=== PATIENT | male | born 1970 | race Caucasian/White ===

== ENCOUNTER 2022-09-10 03:19 | Inpatient (IN) | payer OTHER ==
[2022-09-10] VITALS (25 sets, daily range): BP systolic 95–135; BP diastolic 62–91
[~2022-09-10] VITALS: Ht 177.8 cm; Wt 93.0 kg
--- NOTE | 2022-09-10 03:19 | NUR ---
PT BIBA ALS ER BED 10
[2022-09-10] MEDS ORDERED: PROPOFOL 1000 MG/100 ML PREMIX 100 ML IV ONE ×3 (03:28→08:30)
[2022-09-10] MEDS ORDERED: PROPOFOL 200 MG/20 ML VIAL IV ONE (03:30)
[2022-09-10] MEDS ORDERED: NACL 0.9% 1,000 ML IV ONE (03:30)
--- NOTE | 2022-09-10 03:34 | NUR ---
PT ARRIVED IN FULL ARREST, WITNESSED BY FAMILY, DOWNTIME APPROX 4 MIN TABLE ASSEMBLER METAL OF EMS. 4 ROUNDS OF EPI, 1 LIDOCAINE, 2MG NARCAN, DEFIBRILLATED X3 TIMES TABLE ASSEMBLER METAL. ON ARRIVAL CPR IN PROGRESS, BAGGED VIA BVM. IO NOTED TO LEFT LEG, IV INSERTED TO RIGHT AC #20GUAGE, LEFT FA #18GUAGE. 0322: PT INTUBATED 7.5TEETH 0323: ROSC, STACH PER EKG SEE CODE SHEET
[2022-09-10 03:44] LABS: BASOPHILS # (AUTO) 0.1 K/uL (0.00-0.22); BASOPHILS % (AUTO) 1.3 % (0.0-2.0); EOSINOPHILS # (AUTO) 0.2 K/uL (0-0.4); EOSINOPHILS % (AUTO) 1.7 % (0.0-4.0); HEMATOCRIT 44.6 % (36-52); HEMOGLOBIN 14.6 g/dL (12.0-18.0); LYMPHOCYTES # (AUTO) 7.9 K/uL (2.0-11.5); LYMPHOCYTES % (AUTO) 72.7 % (20.5-51.1); MEAN CORPUSCULAR HEMOGLOBIN 34 pg (27-31); MEAN CORPUSCULAR HGB CONC 33 g/dL (33-37); MEAN CORPUSCULAR VOLUME 104.3 fL (80-94); MONOCYTES # (AUTO) 0.5 K/uL (0.8-1.0); MONOCYTES % (AUTO) 4.2 % (1.7-9.3); NEUTROPHILS # (AUTO) 2.2 K/uL (1.8-7.7); NEUTROPHILS % (AUTO) 20.1 % (42.2-75.2); PLATELET COUNT (AUTO) 82 K/uL (140-450); RED BLOOD CELL COUNT(AUTO) 4.27 MIL/uL (4.20-6.10); RED CELL DISTRIBUTION WIDTH 13.8 % (11.6-13.7); WHITE BLOOD COUNT (AUTO) 10.9 K/uL (4.8-10.8)
[2022-09-10] MEDS ORDERED: VANCOMYCIN 1,000 MG in DEXTROSE 5% 250 ML IV ONE (03:50)
--- NOTE | 2022-09-10 03:54 | NUR ---
F/C INSERTED USING STERILE TECHNIQUE, F/C DRAINING TO GRAVITY.
[2022-09-10 04:05] LABS: APPEARANCE,URINE CLEAR (CLEAR); BILIRUBIN,URINE NEGATIVE (NEGATIVE); BLOOD, URINE 1+ (NEGATIVE); COLOR,URINE YELLOW (YELLOW); LEUKOCYTE ESTERASE ,URINE TRACE (NEGATIVE); NITRITE, URINE NEGATIVE (NEGATIVE); PH,URINE 6.5 (5.0-9.0); UGLUCOSE NEGATIVE (NEGATIVE)
[2022-09-10] MEDS ORDERED: cefTRIAXone 1,000 MG VIAL ONE (04:05)
[2022-09-10 04:12] LABS: ANION GAP 20.5 (8-16); CARBON DIOXIDE 22.9 mmol/L (21-32); POTASSIUM 4.4 mmol/L (3.5-5.1); TOTAL BILIRUBIN 0.3 mg/dL (0.0-1.0)
[2022-09-10 04:16] LABS: BARBITURATE, URINE NEGATIVE ng/ml (NEG <=200); BENZODIAZEPINE, URINE NEGATIVE ng/mL (NEG <=200); CANNABINOID, URINE POSITIVE ng/mL (NEG <=50); COCAINE, URINE NEGATIVE ng/mL (NEG <=300); OPIATE, URINE NEGATIVE ng/mL (NEG <=2000); PHENCYCLIDINE SCREEN,URINE NEGATIVE ng/mL (NEG <=25)
[2022-09-10] MEDS ORDERED: VANCOMYCIN 1,000 MG VIAL ONE (04:19)
[2022-09-10] MEDS ORDERED: NOREPINEPHRINE 4 MG/4 ML VIAL IV ONE (04:23)
[2022-09-10] MEDS ORDERED: NOREPINEPHRINE 4 MG in DEXTROSE 5% 250 ML IV ONE (05:05)
[2022-09-10] MEDS ORDERED: SPIR50TA PO (05:10)
[2022-09-10] MEDS ORDERED: VITB12 PO (05:10)
[2022-09-10] MEDS ORDERED: CARV25TA PO (05:10)
[2022-09-10] MEDS ORDERED: BENA40TA PO (05:10)
[2022-09-10] MEDS ORDERED: CHOL100013 PO (05:10)
[2022-09-10 06:00] LABS: RBC,URINE 0-5 /HPF (0-5)
[2022-09-10] MEDS ORDERED: MORPHINE SULFATE 4 MG/ML SYR IVP PRN (06:05)
[2022-09-10] MEDS ORDERED: ACETAMINOPHEN 325 MG TAB PO PRN (06:05)
[2022-09-10] MEDS ORDERED: KCL 20 MEQ/WATER INJ PREMIX 200 ML IV PRN (06:05)
[2022-09-10] MEDS ORDERED: ONDANSETRON 4 MG/2 ML VIAL IVP PRN (06:05)
[2022-09-10] MEDS ORDERED: MAGNESIUM OXIDE 400 MG TAB PO PRN (06:05)
[2022-09-10] MEDS ORDERED: POTASSIUM CHLORIDE 10 MEQ TABER PO PRN (06:05)
[2022-09-10] MEDS ORDERED: HYDROcodone/APAP 5/325 MG 1 TAB TAB PO PRN (06:05)
[2022-09-10] MEDS ORDERED: MAG SULF 2000 MG/WATER PREMIX 50 ML IV PRN (06:05)
--- NOTE | 2022-09-10 06:25 | NUR ---
TRANSFERRED TO ICU-2 PATIENT REMOVED FROM VENTILATOR PLACED ON SUPPLEMENTAL OXYGEN AT 15 LPM VIA E-TANK TO AMBU BAG/ENDOTRACHEAL TUBE/HME/INLINE SUCTION CATHETER BAG DEPRESSION EVERY SIX SECONDS TOLERATED TRANSFER WELL WITHOUT ADVERSE REACTIONS NOTED SATURATION 100% HT HR HIGH 70's TO LOW 80''s
--- NOTE | 2022-09-10 06:30 | NUR ---
Patient received from ER admitted to ICU room 2, unresponsive, ongoing Propofol drip for sedation moves extremities bilateral wrist restraints in place for safety,HR ?80'S SR on the monitor Levophed drip at 6mcg/min vitals signs stable, ETT to ventilator A/C V/C mode rate 18 FIO2 60% TV 550 PEEP 5, aaron to gravity. Complete bed bath given with CHG wipes skin checked four eyes assessment no skin breakdown noted, IV site left subclavian triple lumen flushed with NS with good blood return. Pt repositioned education not done due to pt's condition.
--- NOTE | 2022-09-10 06:45 | NUR ---
Bedside report received from DAMASO WHITE at the bedside as per report pt was full arrest from home enroute ER family are in waiting room.
--- NOTE | 2022-09-10 06:53 | NUR ---
Patient will be admitted to care of [facility]. Admited to ICU. Will go to room ICU. Belongings list completed. Report to KENNEY.
--- NOTE | 2022-09-10 07:10 | NUR ---
[facility] VENTILATOR PLUGGED INTO RED OUTLET TOLERATING WELL WITHOUT ADVERSE REACTIONS NOTED TO AN ENDOTRACHEAL TUBE #7.5 SECURED AT 25cm TEETH/GUM LINE WIH AN ANCHOR FAST CUFF PRESSURE CHECKED NOTED AMBU BAG AT BEDSIDE RESTING COMFORTABLY EQUAL CHEST RISE GOOD AERATION THROUGHOUT BILATERAL LUNG HICKMAN AIRWAY PATENT
--- NOTE | 2022-09-10 07:15 | NUR ---
Bedside report given to EULOGIO WHITE at the bedside for continuity of care.
--- NOTE | 2022-09-10 07:25 | NUR ---
SBAR REPORT RECEIVED FROM TASHA WHITE, ALL CARES ASSUMED. PT INTUBATED, SEDATED WITH PROPOFOL DRIP. VENT SETTINGS: ACVC 18, 550, 60%, 5.
--- NOTE | 2022-09-10 07:45 | NUR ---
NGT inserted via left nares placement verification done by auscultation and chest xray at the bedside.
[2022-09-10] MEDS: PANTOPRAZOLE 40 MG INJ VIAL IVP SCH (08:28)
--- NOTE | 2022-09-10 10:01 | NUR ---
DR. JORDYN LEONARD AT BEDSIDE REVIEWED PATIENT LOC (SEDATED), VENTILATOR AND PULMONARY STATUS; ABG RESULTS THIS AM AT 0349 DR LEONARD INCREASED MECHANICAL RATE TO 22 BPM MICHELLE SAINZ: ROUTINE ABG LATE AFTERNOON
--- NOTE | 2022-09-10 10:06 | NUR ---
SEDATED TOLERATING VENTILATOR SUPPORT GOOD CHEST RISE AND AERATION THROUGHOUT BILATERAL LUNG HICKMAN AIRWAY PATENT SATURATION 100% ON FIO2 OF 60% PEEP 5 cmH2O TITRATED FIO2 TO 50% EULOGIO/TRANSFER OPERATOR NOTIFIED OF RATE AND FIO2 CHANGES
[2022-09-10] MEDS ORDERED: MORPHINE SULFATE 2 MG/ML SYR IVP PRN (10:30)
--- NOTE | 2022-09-10 10:33 | NUR ---
PATIENT HAS BEEN SCREENED AND CATEGORIZED HIGH NUTRITION RISK. PATIENT WILL BE SEEN WITHIN 1-2 DAYS OF ADMISSION. 09/10/22-09/12/[address]
[2022-09-10] MEDS: PROPOFOL 1000 MG/100 ML PREMIX 100 ML IV PRN ×4 (11:03→23:13)
--- NOTE | 2022-09-10 11:58 | NUR ---
09/10/22 RD INITIAL ASSESSMENT COMPLETED. PLEASE REFER TO NUTRITION ASSESSMENT UNDER CARE ACTIVITY FOR ESTIMATED NUTRITIONAL NEEDS. 1. WHEN/IF MEDICALLY APPROPRIATE TO INITIATE TUBE FEEDING, RECOMMEND NEPRO WITH A GOAL RATE OF 35ML/HR -FWF 220ML Q8H OR PER MD. -START @10 ML/HR AND INCREASE BY 10ML/HR Q4H PT TOLERATES UNTIL GOAL RATE IS REACHED. -THIS WILL PROVIDE 840 ML VOLUME, 2436 KCAL, AND 68 GRAMS OF PROTEIN, MEETING 100% OF KCAL AND 97% OF PROTEIN NEEDS;ADEQUATE. 2.MONITOR NPO STATUS 3.RD TO FOLLOW-UP 2-3 DAYS, HIGH RISK RADHA BEAUCHAMP RD
--- NOTE | 2022-09-10 13:55 | NUR ---
SEDATED STABLE RESTING WELL GOOD CHEST RISE OROPHARYNGEAL SUCTION FOR COPIOUS CLEAR TO SCATTERED WHITE SECRETIONS AIRWAY PATENT
--- NOTE | 2022-09-10 15:30 | NUR ---
DC PLANNING SW MET FAMILY AT BEDSIDE TO COMPLETE ASSESSMENT. SW GATHERED COLLATERAL INFORMATION FROM PT'S , AYAD FORD. AYAD REPORTS PATIENT RESIDES AT HOME IN A GROUND FLOOR APT, AT THE ADDRESS LISTED ON FILE. AYAD REPORTS SHE IS EMERGENCY CONTACT [phone]. PATIENT IS REPORTED TO MEET WITH PCP, DR. LOPEZ,REGULARLY, LAST VISIT; MAY 23. PATIENT ALSO MEETS WITH MEDICAL PHYSICIST REGULARLY, LAST VISIT; DEC 23. PATIENT IS REPORTED TO BE MEDICATION COMPLIANT. FAMILY DENIES BARRIERS IN ACCESS TO MEDIATIONS. PATIENT RECEIVES MEDICATION FROM [employer] [facility], WHEN NEEDED. PRIOR TO THIS HOSPITALIZATION, PATIENT WAS AMBULATORY AND COMPLETED ALL ADL'S INDEPENDENTLY. FAMILY DENIES MH/SA HX. AYAD REPORTS TENTATIVE DC PLAN IS FOR PATIENT TO RETURN HOME UNLESS OTHERWISE RECOMMENDED BY A DR FOR ALTERNATIVE PLAN OF CARE. SW INQUIRED ON RESOURCES NEEDED, FAMILY DECLINED AT THIS TIME.
--- NOTE | 2022-09-10 15:58 | NUR ---
SEDATED NO APPARENT DISTRESS NOTED EQUAL CHEST RISE GOOD AERATION THROUGHOUT BILATERAL LUNG HICKMAN AIRWAY PATENT
[2022-09-10] MEDS ORDERED: NOREPINEPHRINE 4 MG in DEXTROSE 5% 250 ML IV PRN (16:00)
--- NOTE | 2022-09-10 16:01 | NUR ---
ABG COMPLETED NO EVIDENCE OF HEMATOMA OR ADVERSE REACTIONS NOTED AT PUNCTURE SITE
--- NOTE | 2022-09-10 16:11 | NUR ---
CALLED DR. JORDYN LEONARD AT [facility] [phone] TO REVIEW ABG SAMPLE REPORT RUBY/OFFICE TO FOREMENTIONED MD PATIENT INFORMATION AND CALL BACK NUMBER GIVEN
--- NOTE | 2022-09-10 16:18 | NUR ---
CALL BACK FROM DR. JORDYN LEONARD REVIEWED ABG SAMPLE REPORT VENTILATOR SETTINGS AND PATIENT TOTAL RESPIRATORY RATE OF 22 BPM MARK LEONARD: DECREASE RATE TO 20 BPM; ABG 09/11 0800; DUONEB Q6PRN FOR SOB
--- NOTE | 2022-09-10 16:36 | NUR ---
SEDATED NO DISTRESS NOTED GOOD CHEST RISE AIRWAY PATENT PER ABG RESULTS MARK LEONARD DECREASED MECHANICAL RATE TO 20 BPM; SATURATION 100% ON FIO2 40% PEEP 5 cmH2O TITRATED FIO2 TO 35% EULOGIO/PROCESS ENGINEERING TECHNICIAN NOTIFIED ON VENTILATOR CHANGES
[2022-09-10] MEDS: NACL 0.9% 1,000 ML IV SCH (16:37)
--- NOTE | 2022-09-10 19:13 | NUR ---
SBAR REPORT GIVEN TO TASHA WHITE, ALL CARES ENDORSED.
--- NOTE | 2022-09-10 19:40 | NUR ---
Assumed pt care report received from Ely WHITE. Sedation Propofol turned for pt's baseline neuro assessment, unresponsive unable to follow command bur facial grimaces noted, moves all extremities, HR 70'S VITALS signs stable afebrile ongoing levophed dirip NGT RIGHT nares clamped pending respiratory care technician consult, aaron to gravity.clear yellow urine. ETT to ventilator fio2 30% O2 sat 97% oral care done lots of saliva drooling required frequent suction and air way clearance.
--- NOTE | 2022-09-10 20:50 | NUR ---
P'T'S at the bedside updates on pt's condition, treatments, also education on care plan ventilator tx iv fluids and restraints for safety encouraged her to verbalize her concerns
--- NOTE | 2022-09-10 21:15 | NUR ---
PT'S baseline neuro assessment at the bedside, unable to follow command, eyes not open to command moves all extremities, positive gag reflex and cough, eyes ROCIO 2/2 eyes blinked to threat pt's was also at the bedside, Levophed was also turned off as blood pressure stable will continue to monitor nad treat as per MD's order.
[2022-09-11] VITALS (27 sets, daily range): BP systolic 103–127; BP diastolic 60–88
[2022-09-11] MEDS: PROPOFOL 1000 MG/100 ML PREMIX 100 ML IV PRN ×5 (02:18→21:30)
[2022-09-11] MEDS: NACL 0.9% 1,000 ML IV SCH ×2 (05:07→18:04)
[2022-09-11 06:07] LABS: BASOPHILS % (AUTO) 0.1 % (0.0-2.0); HEMATOCRIT 39.6 % (36-52); HEMOGLOBIN 13.4 g/dL (12.0-18.0); LYMPHOCYTES # (AUTO) 0.8 K/uL (2.0-11.5); MEAN CORPUSCULAR HEMOGLOBIN 34 pg (27-31); MEAN CORPUSCULAR HGB CONC 34 g/dL (33-37); MEAN CORPUSCULAR VOLUME 99.3 fL (80-94); MONOCYTES # (AUTO) 1.1 K/uL (0.8-1.0); MONOCYTES % (AUTO) 6.9 % (1.7-9.3); NEUTROPHILS # (AUTO) 14.3 K/uL (1.8-7.7); PLATELET COUNT (AUTO) 158 K/uL (140-450); RED BLOOD CELL COUNT(AUTO) 3.99 MIL/uL (4.20-6.10); RED CELL DISTRIBUTION WIDTH 13.7 % (11.6-13.7); WHITE BLOOD COUNT (AUTO) 16.2 K/uL (4.8-10.8)
[2022-09-11 06:22] LABS: ANION GAP 17.9 (8-16); CARBON DIOXIDE 21.8 mmol/L (21-32); POTASSIUM 3.7 mmol/L (3.5-5.1)
--- NOTE | 2022-09-11 06:30 | NUR ---
Complete bed bath, oral care and pt tolerated well vitals signs stable
--- NOTE | 2022-09-11 07:10 | NUR ---
RECEIVED BEDSIDE REPORT FROM TASHA KEE RN FOR CONTINUITY OF CARE. PT SEDATED IN THE BED, RASS -3, WITHDRAWS TO STIMULATION, POSITIVE GAG AND COUGH REFLEX. ETT TO VENT, ACVC, FIO2 30% VT 550 PEEP 5 R 20. SR W PVCS AND PACS, INTERMITTENT BIGEMINY. L SUBCLAVIAN TLC CENTRAL LINE. INFUSING PROPOFOL AT 40 MCG/KG/MIN, NS AT 80 ML/HR. LEVOPHED ON STANDBY, OFF LAST NIGHT AT 2200. R NGT IN PLACE CLAMPED. LAST BM 09/09/22 AM. BOWEL SOUNDS ACTIVE. FC TO GRAVITY. GENERALIZED WEAKNESS, SKIN INTACT. STANDARD ISOLATION. BL WRIST RESTRAINTS IN PLACE, NO S/S INJURY ORDER AT 1999. CALL LIGHT WITHIN REACH. INITIAL ASSESSMENT COMPLETE, WILL CONTINUE TO CLOSELY MONITOR.
--- NOTE | 2022-09-11 07:15 | NUR ---
RECEIVED PT ON ACVC 550,20,+5, 30%. VENT PLUGGED INTO RED OUTLET, WHEELS ARE LOCKED AND AMBU BAG AT BEDSIDE. ALARMS ARE SET AND AUDIBLE. GOOD CHEST RISE, CLEAR BREATH SOUNDS, SATURATION 99% ON 30%FIO2.
--- NOTE | 2022-09-11 07:18 | NUR ---
Change of shift report at the bedside given to Roxane WHITE for continuity of care. Patient sedated on Propofol drip ETT to ventilator tolerating well all care and tx
[2022-09-11 07:27] LABS: ALBUMIN 2.8 g/dL (3.4-5.0); CREATININE 3.7 mg/dL (0.6-1.3); MAGNESIUM 1.7 mg/dL (1.8-2.4)
--- NOTE | 2022-09-11 08:49 | NUR ---
RD SPOKE WITH RN INQUIRING ABOUT TUBE FEEDING RECOMMENDATION GIVEN YESTERDAY FOR PT WHO IS STILL NPO TODAY. RN STATES SHE WILL LET MD KNOW ABOUT TUBE FEEDING RECOMMENDATION.
[2022-09-11] MEDS: PANTOPRAZOLE 40 MG INJ VIAL IVP SCH (08:55)
--- NOTE | 2022-09-11 09:00 | NUR ---
DR RICHTER ROUNDING AT BEDSIDE.
--- NOTE | 2022-09-11 09:18 | NUR ---
DC PLANNIN YRS OLD MALE PATIENT WAS ADMITTED FROM HOME WITH A DX OF CARDIAC ARREST. PATIENT HAS A HX OF CHF AND HTN. INTUBATED SEDATED FIO2 28%. CXR SHOWED MULTIFOCAL PNEUMONIA. RAPID COVID TEST NEGATIVE. CT HEAD NEGATIVE RENAL US SHOWED INCREASED ECHOGENICITY SUGGESTED MEDICAL RENAL DISEASE. ON AMIODARONE AND PROPOFOL DRIP. ADMINISTERED IVF IV ABX ROCEPHIN. CONSULTED WITH PULMO, CARDIO AND NEPHRO. DC PLAN PER PT RESPOND TO THE TREATMENT. CM TO FOLLOW Addendum: 09/14/22 at 1243 by Larissa Hinojosa RN DC PLANNING: PATIENT HAS AN ORDER TO GO TO HIGHER LEVEL OF CARE. FAXED TO [facility]. PT'S CHRO IS DR [facility] WHO HAS A PRIVILEGE AT [facility]. CM TO FOLLOW Addendum: 09/14/22 at 1250 by Larissa Hinojosa RN DC PLANNING: RECEIVED A CALL FROM THE [facility] LUIS, SHE PROVIDED AUTH FOR TRANSPORT [id number] AWAITING FOR ESTEVAN TO CALL BACK. LUIS TO FOLLOW Addendum: 09/14/22 at 1509 by Larissa Hinojosa RN DC PLANNING: RECEIVED A CALL FROM DOROTHY AT THE [facility] SHE PROVIDED THE AUTH FOR [facility] [id number]. CALLED [facility] AND PROVIDE THE AUTH TO HOUSE EILEEN WELDON AND ARRANGED TRANSPORT WITH [facility] PLACE IT WILL CALL. [facility] # [phone] TO FOLLOW
--- NOTE | 2022-09-11 09:58 | NUR ---
SEEN AND EXAMINED BY DR LEONARD AT BEDSIDE. SPOKE WITH AT BEDSIDE, EDUCATED REGARDING PT CONDITION AND PLAN OF CARE. ALL QUESTIONS ANSWERED.
--- NOTE | 2022-09-11 12:00 | NUR ---
PT RESTING, NO S/S ACUTE DISTRESS. WILL CONTINUE TO CLOSELY MONITOR.
--- NOTE | 2022-09-11 14:30 | NUR ---
SUPERVISOR ALUM PLANT AT BEDSIDE.
--- NOTE | 2022-09-11 15:05 | NUR ---
25 SECOND EPISODE OF ASYMPTOMATIC VTACH. RETURN TO SR AFTER 25 SECONDS. WILL CONTINUE TO CLOSELY MONITOR.
--- NOTE | 2022-09-11 15:52 | NUR ---
DR BALDERRAMA CONSULTING AT BEDSIDE. RECEIVED ORDERS TO START AMIODARONE DRIP. SPOKE WITH AT BEDSIDE, EDUCATED REGARDING PT CONDITION AND PLAN OF CARE. ALL QUESTIONS ANSWERED.
[2022-09-11] MEDS ORDERED: POTASSIUM CHLORIDE 10 MEQ TABER PO ONE (16:15)
[2022-09-11] MEDS ORDERED: AMIODARONE 150 MG in DEXTROSE 5% 100 ML IV ONE (16:15)
[2022-09-11] MEDS ORDERED: MAG SULF 2000 MG/WATER PREMIX 50 ML IV ONE (16:15)
[2022-09-11] MEDS ORDERED: ASPIRIN 81 MG TAB.CHEW NG ONE (16:15)
--- NOTE | 2022-09-11 17:31 | NUR ---
09/11/22 RD FOLLOW UP COMPLETED. PLEASE REFER TO NUTRITION ASSESSMENT UNDER CARE ACTIVITY FOR ESTIMATED NUTRITIONAL NEEDS. 1.CONTINUE NEPRO @35ML/HR -FWF 220ML Q8H OR PER MD. -THIS WILL PROVIDE 840 ML VOLUME, 2436 KCAL, AND 68 GRAMS OF PROTEIN, MEETING 100% OF KCAL AND 97% OF PROTEIN NEEDS;ADEQUATE. 2.MONITOR FOR GASTRIC RESIDUAL. 3.IF PT IS EXTUBATED, RECOMMEND LOW NA DIET. 4.RD TO FOLLOW-UP IN 2-3 DAYS PATIENT IS HIGH RISK. RADHA BEAUCHAMP RD
[2022-09-11] MEDS ORDERED: ASPIRIN 81 MG TAB.CHEW ONE (17:37)
[2022-09-11] MEDS: AMIODARONE 450 MG in DEXTROSE 5% 250 ML IV SCH (18:10)
--- NOTE | 2022-09-11 18:10 | NUR ---
AMIODARONE DRIP STARTED ORDERED. NGT FEEDING STARTED AT 10 ML/HR ORDERED.
--- NOTE | 2022-09-11 19:20 | NUR ---
ENDORSED BEDSIDE REPORT TO JANEEN NIGHT RN FOR CONTINUITY OF CARE. ALL QUESTIONS ANSWERED. NO S/S ACUTE DISTRESS AT THIS TIME.
--- NOTE | 2022-09-11 20:00 | NUR ---
191: REC'D PT FROM CHRISTOPHER ELI TO ASSUME PLAN FO ACRE. PT'S ORALLY INTUBATED. AC MODE; AC 20, FI02 30%, TV 550, PEEP OF 5 SATS >98%. SUCTIONED LOTS OF SECRETIONS WHITISH COLOR. HAS NGT TO THE RIGHT NARES GETTING NEPRO FEEDING AT 10CC/HR, JUST STARTED WITH GOAL OF 35CC/HR ON AMIODARONE DRIP AT 1MG STARTED 1800 FOR 6 HRS, PROPOFOL DRIP, AND NS AT 80CC/HR ALL INFUSING ONTHE LSC TLC ALL PORTS PATENT AND INTACT. TURNED AND REPOSITIONED. NO SKIN BREAKDOWN IS NOTED. 2000: CRITICAL SHIFT ASSESSMENT DONE. SAFETY AND SKIN PROTOCOL ON PROGRESS. CONTINUE MONITOR. 2030: FAMILIES COMING IN AND OUT TO VISIT THE PT.
[2022-09-12] VITALS (31 sets, daily range): BP systolic 96–144; BP diastolic 64–104
[2022-09-12] MEDS: PROPOFOL 1000 MG/100 ML PREMIX 100 ML IV PRN ×4 (02:10→15:52)
[2022-09-12] MEDS ORDERED: AMIODARONE 450 MG/9 ML VIAL IV ONE (03:05)
[2022-09-12 05:34] LABS: BASOPHILS % (AUTO) 0.1 % (0.0-2.0); EOSINOPHILS % (AUTO) 0.2 % (0.0-4.0); HEMATOCRIT 37.7 % (36-52); HEMOGLOBIN 12.7 g/dL (12.0-18.0); LYMPHOCYTES # (AUTO) 1.1 K/uL (2.0-11.5); LYMPHOCYTES % (AUTO) 7.8 % (20.5-51.1); MEAN CORPUSCULAR HEMOGLOBIN 34 pg (27-31); MEAN CORPUSCULAR HGB CONC 34 g/dL (33-37); MEAN CORPUSCULAR VOLUME 100.6 fL (80-94); MONOCYTES # (AUTO) 1.3 K/uL (0.8-1.0); MONOCYTES % (AUTO) 9.2 % (1.7-9.3); NEUTROPHILS # (AUTO) 11.5 K/uL (1.8-7.7); NEUTROPHILS % (AUTO) 82.7 % (42.2-75.2); PLATELET COUNT (AUTO) 132 K/uL (140-450); RED BLOOD CELL COUNT(AUTO) 3.75 MIL/uL (4.20-6.10); RED CELL DISTRIBUTION WIDTH 13.7 % (11.6-13.7); WHITE BLOOD COUNT (AUTO) 13.9 K/uL (4.8-10.8)
[2022-09-12 06:18] LABS: ALBUMIN 2.5 g/dL (3.4-5.0); ANION GAP 16.3 (8-16); CARBON DIOXIDE 21.7 mmol/L (21-32); CREATININE 3.8 mg/dL (0.6-1.3); MAGNESIUM 2.3 mg/dL (1.8-2.4); TOTAL BILIRUBIN 0.4 mg/dL (0.0-1.0)
--- NOTE | 2022-09-12 06:24 | NUR ---
0000: STARTED 0.5 MG AMIODARONE TO INFUSE FOR 18 HRS, DONE BY 1800 FREQUENT SUCTIONING RENDERED AND ORAL CARE. NO SIGNIFICANT CHANGES FROM PREVIOUS SHIFT ASSESSMENT.\SAME VENT SETTINGS, JOSÉ FAIRLY. INCREASED NGT FEEDING TO 20CC/HR, JOSÉ FAIRLY. 0400: GIVEN CHG BATH, ORAL CARE. CONTINUE BILAT SOFT WRIST RESTRAINTS FOR SAFETY. SKIN CARE , TURNED EVERY 2 HOURS. NO SKIN BREAKDOWN. WILL ENDORSE TO AM RN TO ASSUME PLAN OF CARE.
--- NOTE | 2022-09-12 07:15 | NUR ---
RECEIVED BEDSIDE REPORT FROM JANEEN NIGHT RN FOR CONTINUITY OF CARE. PT SEDATED IN THE BED, RASS -3, WITHDRAWS TO STIMULATION, POSITIVE GAG AND COUGH REFLEX. ETT TO VENT, ACVC, FIO2 28% VT 550 PEEP 5 RR 16. SB W PVCS ON MONITOR. LT SUBCLAVIAN TLC CENTRAL LINE. INFUSING PROPOFOL AT 40 MCG/KG/MIN, NS AT 80 ML/HR. AMIODARONE AT 0.5MG/MIN. RT NGT IN PLACE, RUNNING NEPRO AT 20MLS/HR W/ FWF 220MLS Q8HR. BOWEL SOUNDS ACTIVE. DUARTE CATHETER IN PLACE TO GRAVITY, URINE CLEAR, DARK ADRIAN. GENERALIZED WEAKNESS, SKIN INTACT. STANDARD ISOLATION. BILAT WRIST RESTRAINTS IN PLACE, NO S/S INJURY. CALL LIGHT WITHIN REACH. INITIAL ASSESSMENT COMPLETE, WILL CONTINUE TO CLOSELY MONITOR.
--- NOTE | 2022-09-12 07:15 | NUR ---
RECEIVED PT ON AC 550, RR16, +5, 28%. VENT PLUGGED INTO RED OUTLET, WHEELS ARE LOCKED AND AMBU BAG AT BEDSIDE. ALARMS ARE SET AND AUDIBLE. GOOD CHEST RISE, CLEAR BREATH SOUNDS, SATURATION 99%.
[2022-09-12] MEDS: NACL 0.9% 1,000 ML IV SCH ×2 (07:29→22:00)
--- NOTE | 2022-09-12 08:07 | NUR ---
REPORTED ABG RESULTS TO DR. LEONARD. NO NEW ORDERS.
--- NOTE | 2022-09-12 08:27 | NUR ---
CXR DONE AT BEDSIDE.
--- NOTE | 2022-09-12 08:33 | NUR ---
PT. WITH LOW NATASHA SCALE AT MODERATE TO HIGH RISK, CONTINUE TO FOLLOW PRESSURE INJURY PREVENTION INTERVENTIONS. -POSITIONING: TURN AND REPOSITION PATIENT Q 2H OR SOONER USE PILLOWS TO KEEP BONY PROMINENCES FROM DIRECT CONTACT WITH SURFACES USE REPOSITIONING WEDGES TO PROVIDE 30-DEGREE ANGLE FOR SIDE LYING POSITIONS OFFLOADING OR FOAM DRESSING TO ALL TUBING TO PREVENT MEDICAL DEVICES RELATED PRESSURE INJURY -RE-EVALUATING AND MANAGING INCONTINENCE MONITOR SKIN CONDITION DURING POSITION CHANGE DO NOT MASSAGE REDNESS, BONY PROMINENCES FREQUENT RENE-CARE AND PROVIDE BARRIER CREAMS PRN IF SOILING MOISTURE CONTROL BY OFFER BED WELLER/URINAL /ABSORBENT PAD TO WICK AND HOLD MOISTURE KEEP SKIN DRY AND PROTECT FROM FRICTION -MANAGE FRICTION/SHEAR/MOBILITY KEEP HOB AT THE LOWEST LEVEL OF ELEVATION NO MORE THAN 30 DEGREE UNLESS OTHERWISE CONTRAINDICATED USE LIFT SHEET OR TRANSFER DEVICE TO MOVE PATIENT AND PREVENT LATERAL SHEER. PROTECT HEELS, ELBOWS BONY PROMINENCES WITH SKIN BERRIES OR FOAM DRESSING IF EXPOSED TO FRICTION OFFLOAD BILATERAL HEELS BY PLACING PILLOWS UNDER CALVES AT ALL TIMES, UNLESS OTHERWISE CONTRAINDICATED -PRESSURE REDISTRIBUTION SURFACE THERAPY TAI ISOFLEX MATTRESS -NUTRITION: PLEASE FOLLOW RD RECOMMENDATIONS AND OFFER NUTRITION SUPPLEMENTS IF ORDERED. PLEASE CONTACT WOUND CARE NURSE FOR ANY QUESTION AND CHANGE OF WOUND CONDITION.
--- NOTE | 2022-09-12 08:53 | NUR ---
SEEN AND EXAMINED BY DR RICHTER. UPDATED PT INFORMATION. ORDERED SEDATION VACATION TO DO CPAP TRAIL. CT HEAD ON 09/13.
[2022-09-12] MEDS: PANTOPRAZOLE 40 MG INJ VIAL IVP SCH (08:55)
[2022-09-12] MEDS: ASPIRIN 81 MG TAB.CHEW NG SCH (08:56)
--- NOTE | 2022-09-12 09:10 | NUR ---
REPORTED URINE OUTPUT DURING MACHINE DEBURRER AND TODAY'S BUN AND CREATININE LABS TO DR. GARCIA WITH NO NEW ORDERS. DR. GARCIA AT BEDSIDE SPEAKING TO .
--- NOTE | 2022-09-12 10:42 | NUR ---
RT at bedside and pt on CPAP trial. Addendum: 09/12/22 at 1801 by Noni Pichardo RN Per RT, pt lasted on CPAP trial for 20 minutes.
--- NOTE | 2022-09-12 11:10 | NUR ---
Seen and examined by Dr. Porras. at bedside speaking with Dr. Porras.
--- NOTE | 2022-09-12 11:20 | NUR ---
SEEN AND EXAMINED BY DR BALDERRAMA. UPDATED PT INFORMATION. ORDERED AFTER 1830 TO CONTINUE AMIODARONE PAPO.
--- NOTE | 2022-09-12 12:08 | NUR ---
Reported calcium level to Dr. Walter. New order received.
[2022-09-12] MEDS ORDERED: CALCIUM GLUC 1 GM/50 mL NS BAG 50 ML IV SCH (14:00)
--- NOTE | 2022-09-12 17:26 | NUR ---
Reported no bowel movement in [address] Walter. New orders received.
[2022-09-12] MEDS: AMIODARONE 450 MG in DEXTROSE 5% 250 ML IV SCH (18:33)
[2022-09-12] MEDS: LACTULOSE 20 GM/30 ML UDC GT PRN (18:35)
--- NOTE | 2022-09-12 19:18 | NUR ---
RECEIVED REPORT FROM LEE (Teodoro SIMMONS RN AND ELLEN Almanzar RN) PATIENT RECEIVED IN BED, SEDATED, INTUBATED AND DEPENDENT ON VENT) HAS AMIODARONE DRIP RUNNING AT 5 HAS PROPOFOL DRIP RUNNING AT 40MCG/MIN HAS NS RUNNING AT 80ML/HR NG TUBE TO RIGHT NARE; PATIENT IS RECEIVING NEPHRO AT 35ML/HR WITH Q8 H20 FLUSH AT 220ML. PATIENT HAS BILATERAL WRIST RESTRAINTS TO BE RENEWED AT MIDNIGHT PATIENT DOES NOT APPEAR TO BE IN DISTRESS, WILL CONTINUE TO MONITOR PATIENT AND ADMINISTER MEDICATIONS AND TREATMENTS ORDERED PER MD.
--- NOTE | 2022-09-12 19:22 | NUR ---
ENDORSED TO YARN REWINDER DAMASO WHITE FOR CONTINUITY OF CARE.
[2022-09-13] VITALS (32 sets, daily range): BP systolic 99–139; BP diastolic 59–98
[2022-09-13] MEDS: PROPOFOL 1000 MG/100 ML PREMIX 100 ML IV PRN ×3 (00:53→23:24)
[2022-09-13 06:04] LABS: ALBUMIN 2.4 g/dL (3.4-5.0); ANION GAP 16.5 (8-16); CARBON DIOXIDE 21.1 mmol/L (21-32); CREATININE 3.4 mg/dL (0.6-1.3); POTASSIUM 3.6 mmol/L (3.5-5.1); TOTAL BILIRUBIN 0.4 mg/dL (0.0-1.0)
[2022-09-13 06:10] LABS: BASOPHILS % (AUTO) 0.2 % (0.0-2.0); EOSINOPHILS # (AUTO) 0.1 K/uL (0-0.4); EOSINOPHILS % (AUTO) 0.6 % (0.0-4.0); HEMATOCRIT 34.5 % (36-52); HEMOGLOBIN 11.8 g/dL (12.0-18.0); LYMPHOCYTES % (AUTO) 11.5 % (20.5-51.1); MEAN CORPUSCULAR HEMOGLOBIN 34 pg (27-31); MEAN CORPUSCULAR HGB CONC 34 g/dL (33-37); MEAN CORPUSCULAR VOLUME 99.5 fL (80-94); MONOCYTES # (AUTO) 0.8 K/uL (0.8-1.0); NEUTROPHILS # (AUTO) 6.6 K/uL (1.8-7.7); NEUTROPHILS % (AUTO) 78.7 % (42.2-75.2); PLATELET COUNT (AUTO) 134 K/uL (140-450); RED BLOOD CELL COUNT(AUTO) 3.47 MIL/uL (4.20-6.10); RED CELL DISTRIBUTION WIDTH 13.6 % (11.6-13.7); WHITE BLOOD COUNT (AUTO) 8.4 K/uL (4.8-10.8)
[2022-09-13] MEDS: NACL 0.9% 1,000 ML IV SCH ×2 (06:54→10:34)
--- NOTE | 2022-09-13 06:55 | NUR ---
DR. RICHTER AT BEDSIDE EXAMINING PATIENT NEW ORDERS: -WEAN PATIENT OFF OF PROPOFOL -ADD PRECEDEX -START SPONTANEOUS BREATHING TRIAL
[2022-09-13] MEDS ORDERED: DEXMEDETOMIDINE HCL 400 MCG in NACL 0.9% 96 ML IV PRN (07:10)
--- NOTE | 2022-09-13 07:15 | NUR ---
PATIENT ENDORSED TO DAY SHIFT (CHRISTOPHER HUGHES AND CHRISTOPHER SIMMONS) ALL UPDATES PROVIDED
--- NOTE | 2022-09-13 07:15 | NUR ---
RECEIVED BEDSIDE REPORT FROM DAMASO KEE RN FOR CONTINUITY OF CARE. PT SEDATED IN THE BED, RASS -3, WITHDRAWS TO STIMULATION, POSITIVE GAG AND COUGH REFLEX. ETT TO VENT, ACVC, FIO2 25% VT 550 PEEP 5 RR 16. SB ON MONITOR. LT SUBCLAVIAN TLC CENTRAL LINE. INFUSING PROPOFOL AT 40 MCG/KG/MIN, NS AT 80 ML/HR. AMIODARONE AT 0.5MG/MIN. RT NGT IN PLACE, RUNNING NEPRO AT 35MLS/HR W/ FWF 220MLS Q8HR. BOWEL SOUNDS ACTIVE. DUARTE CATHETER IN PLACE TO GRAVITY, URINE CLEAR, YELLOW. GENERALIZED WEAKNESS, SKIN INTACT. STANDARD ISOLATION. BILAT WRIST RESTRAINTS IN PLACE, NO S/S INJURY. CALL LIGHT WITHIN REACH. INITIAL ASSESSMENT COMPLETE, WILL CONTINUE TO CLOSELY MONITOR.
--- NOTE | 2022-09-13 08:06 | NUR ---
Reported calcium level to Dr. Walter. New order received.
--- NOTE | 2022-09-13 08:45 | NUR ---
SEEN AND EXAMINED BY DR GARCIA. UPDATED PT INFORMATION. ORDERED CALCIUM GLUCONATE 1G IV.
[2022-09-13] MEDS: ASPIRIN 81 MG TAB.CHEW NG SCH (08:59)
[2022-09-13] MEDS ORDERED: CALCIUM GLUC 1 GM/50 mL NS BAG 50 ML IV SCH ×2 (09:00→14:00)
[2022-09-13] MEDS: PANTOPRAZOLE 40 MG INJ VIAL IVP SCH (09:07)
[2022-09-13] MEDS: DOCUSATE 100 MG/10 ML UDC GT SCH (09:07)
--- NOTE | 2022-09-13 10:10 | NUR ---
SEEN AND EXAMINED BY DR LEONARD. UPDATED PT INFORMATION. DR LEONARD WANTED DAILY CPAP TRAIL, NOT READY TO EXTUBATE YET. WANTED DR BALDERRAMA CONSULT FOR POSSIBLE ICD DUE TO PT CARDIAC DYSRHYTHMIAS.
--- NOTE | 2022-09-13 10:16 | NUR ---
PT PLACED ON SBT WITH BEDSIDE. CPAP 5 PS 12 AND FIO2 25%, ALARMS ON AND FUNCTIONING. NURSE AWARE. WILL CONTINUE TO MONITOR.
[2022-09-13] MEDS: AMIODARONE 450 MG in DEXTROSE 5% 250 ML IV SCH (11:06)
--- NOTE | 2022-09-13 12:01 | NUR ---
PT COMPLETED 1 HOUR 45 MIN OF SBT CPAP 5 PS 12, PT BECOMING VERY TACHYPNEIC AND ANXIOUS. NURSE AWARE. PT RETURNED TO TO FULL MECHANICAL VENTILATION SUPPORT. VENT ALARMS ON AND FUNCTIONING. WILL CONTINUE TO MONITOR.
[2022-09-13] MEDS: DEXMEDETOMIDINE HCL 400 MCG in NACL 0.9% 96 ML IV PRN ×3 (12:47→21:57)
[2022-09-13] MEDS: LACTULOSE 20 GM/30 ML UDC GT PRN (14:04)
--- NOTE | 2022-09-13 15:24 | NUR ---
CONTACTED DR BALDERRAMA REGARDING 24 HR AMIODARONE DRIP WILL STOP AT 1830, DR LEONARD WANT TO KNOW IF DR BALDERRAMA WANT TO PLACE A ICD BEFORE EXTUBATION, PT HAS SINUS BRADYCARDIA WITH INTERMITTENT PVC. DR BALDERRAMA ORDERED STOP AMIODARONE DRIP, START AMIODARONE 400MG PO BID. OK TO EXTUBATE PT FIRST, THEN TRANSFER TO HIGHER LEVEL OF CARE FOR ICD. ASHISH CANNOT DO ICD.
--- NOTE | 2022-09-13 15:27 | NUR ---
09/13/22 RD FOLLOW UP COMPLETED PLEASE REFER TO NUTRITION ASSESSMENT UNDER CARE ACTIVITY FOR ESTIMATED NUTRITIONAL NEEDS. 1. SINCE PATIENT IS NO LONGER TAKING PROPOFOL, RECOMMEND TF NEPRO CARBSTEADY RATE TO BE INCREASED TO 45 ML/HR: - FWF: 200 ML Q6H OR PER MD - PROVIDES 1944 KCAL, 87 G PROTEIN, AND 785 ML H20 DAILY AT GOAL RATE. MEETS >75% OF PATIENTS ESTIMATED KCAL NEEDS AND 100% OF PROTEIN NEEDS. 2. IF EXTUBATED, RECOMMEND CLEAR LIQUID DIET AND GRADUALLY ADVANCE TOLERATED TO RENAL DIET 3. MONITOR NUTRITION-RELATED LAB VALUES 4. RD TO FOLLOW-UP 3-5 DAYS, MODERATE RISK REVIEWED BY CAROLE LEONARD RD
--- NOTE | 2022-09-13 15:40 | NUR ---
CONTACTED DR LEONARD REGARDING DR BALDERRAMA WANT TO EXTUBATE PT FIRST, THEN TRANSFER TO HIGHER LEVEL OF CARE FOR ICD. DR LEONARD ORDERED CONTINUE DAILY CPAP TRAIL TOMORROW.
[2022-09-13] MEDS: AMIODARONE 200 MG TAB NG SCH (17:55)
--- NOTE | 2022-09-13 19:15 | NUR ---
ENDORSED TO CLAY CASTER OKDAK RN FOR CONTINUITY OF CARE.
--- NOTE | 2022-09-13 19:30 | NUR ---
1929 RECEIVED PATIENT FROM TROY WHITE, PATIENT INTUBATED ON MECHANICAL VENTILATION PATIENT SEDATED ON PRECEDEX @ 0.6MCG/KG/MIN AND PROPOFOL @15MCG/KG/MIN PATIENT AROUSABLE ABLE TO FOLLOW SIMPLE COMMANDS PATIENT DOES NOT APPEAR TO BE IN DISTRESS, NO S/S PAIN NOTED
[2022-09-14] VITALS (21 sets, daily range): BP systolic 95–149; BP diastolic 60–94
[2022-09-14] MEDS: NACL 0.9% 1,000 ML IV SCH ×2 (00:52→20:21)
[2022-09-14] MEDS: LACTULOSE 20 GM/30 ML UDC GT PRN (00:55)
[2022-09-14] MEDS: PROPOFOL 1000 MG/100 ML PREMIX 100 ML IV PRN (04:58)
[2022-09-14 05:57] LABS: ALBUMIN 2.4 g/dL (3.4-5.0); ANION GAP 16.4 (8-16); BASOPHILS % (AUTO) 0.2 % (0.0-2.0); CARBON DIOXIDE 20.9 mmol/L (21-32); CREATININE 3.1 mg/dL (0.6-1.3); EOSINOPHILS # (AUTO) 0.1 K/uL (0-0.4); EOSINOPHILS % (AUTO) 1.5 % (0.0-4.0); HEMATOCRIT 34.2 % (36-52); HEMOGLOBIN 11.8 g/dL (12.0-18.0); LYMPHOCYTES # (AUTO) 0.9 K/uL (2.0-11.5); MAGNESIUM 1.8 mg/dL (1.8-2.4); MEAN CORPUSCULAR HEMOGLOBIN 34 pg (27-31); MEAN CORPUSCULAR HGB CONC 34 g/dL (33-37); MEAN CORPUSCULAR VOLUME 99.4 fL (80-94); MONOCYTES # (AUTO) 0.5 K/uL (0.8-1.0); MONOCYTES % (AUTO) 5.6 % (1.7-9.3); NEUTROPHILS # (AUTO) 7.2 K/uL (1.8-7.7); NEUTROPHILS % (AUTO) 82.7 % (42.2-75.2); PLATELET COUNT (AUTO) 144 K/uL (140-450); POTASSIUM 3.3 mmol/L (3.5-5.1); RED BLOOD CELL COUNT(AUTO) 3.44 MIL/uL (4.20-6.10); RED CELL DISTRIBUTION WIDTH 13.8 % (11.6-13.7); TOTAL BILIRUBIN 0.5 mg/dL (0.0-1.0); WHITE BLOOD COUNT (AUTO) 8.7 K/uL (4.8-10.8)
[2022-09-14] MEDS: ALBUTEROL SULFATE/IPRATROPIU 3 ML SOL IH PRN ×2 (07:24→12:39)
--- NOTE | 2022-09-14 07:26 | NUR ---
ENDORSED TO ELLE WHITE
[2022-09-14] MEDS: DEXMEDETOMIDINE HCL 400 MCG in NACL 0.9% 96 ML IV PRN (08:06)
[2022-09-14] MEDS: DOCUSATE 100 MG/10 ML UDC GT SCH (10:01)
[2022-09-14] MEDS: ASPIRIN 81 MG TAB.CHEW NG SCH (10:03)
[2022-09-14] MEDS: PANTOPRAZOLE 40 MG INJ VIAL IVP SCH (10:03)
[2022-09-14] MEDS: AMIODARONE 200 MG TAB NG SCH ×2 (10:04→20:15)
--- NOTE | 2022-09-14 10:37 | NUR ---
PT START ON SBT @1031 PS10 PEEP5 FIO2 30% PT SATTING AT 99% R16 VENT ALARM AUDIBLE NURSE NOTIFIED
--- NOTE | 2022-09-14 11:07 | NUR ---
SPOKE TO REGARDING PT STATUS ON CPAP. PHYSICIAN STATES IF POSITIVE LEAK TEST, NORMAL ABG AND ADEQUATE WEANING PARAMETERS PT TO BE EXTUBATED.
--- NOTE | 2022-09-14 12:25 | NUR ---
PER PT EXTUBATED AND PLACED ON 3L NC, NO STIDOR HEARD ON AUSCULTATION. PRIOR TO EXTUBATION LEAK HEARD AROUND BIZTALK DEVELOPER BALLOON, PT ABLE TO FOLLOW COMMANDS IS AWAKE AND ALERT. PRN BREATHING TX TO BE ADMINISTERED.
--- NOTE | 2022-09-14 19:15 | NUR ---
Opening Received report from RN. Pt AAOx2-3, forgetful. Pt states no pain or distress at this time, on 2L nasal cannula. Pt receiving IVF to left subclavian TLC, noted IVSL 18G to left FA, intact, patent, no infiltration noted. Pt able to move and mobilize self in bed. Schafer in place draining urine to gravity, incontinent of bowel. Situated pt to call light. Pt's Jazmine at bedside.
--- NOTE | 2022-09-14 19:25 | NUR ---
Pt also waiting for transfer to [facility] for higher level of care for cardiac catheter placement.
--- NOTE | 2022-09-14 23:18 | NUR ---
Pt noted gagging and had about 50 ml emesis x1. Provided pt with zofran PRN per MD order.
[2022-09-15] VITALS: BP 137/75
--- NOTE | 2022-09-15 02:02 | NUR ---
Pt resting, equal chest rise and fall, no pain or distress. Pt also noted with multiple bouts of incontinent BM smears requiring frequent cleaning.
[2022-09-15 04:00] VITALS: BP 102/65
--- NOTE | 2022-09-15 04:00 | NUR ---
Pt noted with large amount BM. Emmie care and linen change done. Pt tolerated well.
--- NOTE | 2022-09-15 05:30 | NUR ---
Pt placed on room air by RT, saturating 95%, no acute distress noted.
[2022-09-15 06:10] LABS: HEMATOCRIT 30.7 % (36-52); HEMOGLOBIN 10.4 g/dL (12.0-18.0); MEAN CORPUSCULAR HEMOGLOBIN 34 pg (27-31); MEAN CORPUSCULAR HGB CONC 34 g/dL (33-37); MEAN CORPUSCULAR VOLUME 100.2 fL (80-94); PLATELET COUNT (AUTO) 160 K/uL (140-450); RED BLOOD CELL COUNT(AUTO) 3.07 MIL/uL (4.20-6.10); RED CELL DISTRIBUTION WIDTH 13.4 % (11.6-13.7); WHITE BLOOD COUNT (AUTO) 10.2 K/uL (4.8-10.8)
--- NOTE | 2022-09-15 06:19 | NUR ---
Transfer report given to Sergio WHITE at [facility]. Pending pickup time from [facility]. Per Sergio, [facility] is ready for pt arrival.
[2022-09-15 06:21] LABS: ALBUMIN 2.4 g/dL (3.4-5.0); ANION GAP 15.1 (8-16); CARBON DIOXIDE 21.6 mmol/L (21-32); MAGNESIUM 1.7 mg/dL (1.8-2.4); POTASSIUM 3.7 mmol/L (3.5-5.1); TOTAL BILIRUBIN 0.9 mg/dL (0.0-1.0)
[2022-09-15 06:22] VITALS: BP 121/72
--- NOTE | 2022-09-15 07:05 | NUR ---
RECEIVED BEDSIDE REPORT FROM JIMMY KEE RNS FOR CONTINUITY OF CARE. PT LYING IN THE BED, AAOX3, ON RM AIR, TOLERATING WELL. SR W PVCS ON BEDSIDE MONITOR, W/ L SUBCLAVIAN TLC INFUSING NS AT 80 ML/HR. 18 G TO LFA. BOWEL SOUNDS ACTIVE, F/C TO GRAVITY. MODERATE WEAKNESS BUE BLE. SKIN INTACT. ON STANDARD ISOLATION. SAFETY PRECAUTIONS MET. CALL LIGHT WITHIN REACH. PT , AYAD, AT BEDSIDE. WAITING FOR [facility] PICKUP FOR TRANSFER TO [facility].
[2022-09-15 08:00] VITALS: BP 149/78
--- NOTE | 2022-09-15 08:15 | NUR ---
PT PICKED UP BY [facility], SENT WITH TRANSFER PAPERWORK, DISC, MEDICAL RECORDS. 18G LFA REMOVED, TOLERATED WELL. PT SENT WITH PT BELONGINGS, IS TO MEET PT AT HOSPITAL. PT CONTINUES ON RM AIR, SR W PVCS ON MONITOR. WITH TRANSPORT MONITOR. NO S/S ACUTE DISTRESS. ALL NEEDS MET AT THIS TIME.
== END 2022-09-15 08:15 | disposition short-term general hospital (02) | DRG 130 ==
LOC: MED 03:19 → MIC 06:19
PROVIDERS: ADMIT Student in an Organized Health Care Education/Training Program; ATTEND Student in an Organized Health Care Education/Training Program
PROC: 5A1955Z Respiratory Ventilation, Greater than 96 Consecutive Hours (ICD-10-PCS; principal; 2022-09-10)
PROC: 0BH17EZ Insertion of Endotracheal Airway into Trachea, Via Natural or Artificial Opening (ICD-10-PCS; 2022-09-10)
PROC: 05H633Z Insertion of Infusion Device into Left Subclavian Vein, Percutaneous Approach (ICD-10-PCS; 2022-09-10)
DX: J18.9 Pneumonia, unspecified organism (principal); K72.00 Acute and subacute hepatic failure without coma; I46.9 Cardiac arrest, cause unspecified; N17.0 Acute kidney failure with tubular necrosis; I50.23 Acute on chronic systolic (congestive) heart failure; J96.02 Acute respiratory failure with hypercapnia; J96.01 Acute respiratory failure with hypoxia; I21.A1 Myocardial infarction type 2; E87.29 Other acidosis; I11.0 Hypertensive heart disease with heart failure; I49.01 Ventricular fibrillation; Z20.822 Contact with and (suspected) exposure to COVID-19; Z79.899 Other long term (current) drug therapy; R57.0 Cardiogenic shock
CPT/HCPCS: 31500; 36415; 36600; 51702; 70450; 71045; 76770; 80053; 80305; 81001; 82803; 83605; 83735; 84300; 84484; 85025; 87040; 87070; 87081; 87086; 87205; 89220; 92950; 93005; 94002; 94003; 94640; 96365; 96366; 96367; 99291; C9113; J0282; J0610; J0696; J1644; J2405; J2704; J3370; J3475; J3490; J7030; J7060; Q0092